=== PATIENT | female | born 1985 | race African-American/Black ===

== ENCOUNTER 2018-02-27 12:57 | Emergency (ER) | payer SELFPAY ==
[~2018-02-27] VITALS: Ht 167.6 cm; Wt 80.0 kg
[2018-02-27 13:00] VITALS: BP 143/70; PULSE 88; RESP 18; TEMP 97.8; O2SAT 100
--- NOTE | 2018-02-27 13:25 | PD ---
HPI Chief Complaint: Related Problem Time Seen by Provider: 13:20 Travel History International Travel<30 days: No Contact w/Intl Traveler<30days: No Traveled to known affect area: No History of Present Illness HPI 32-year-old female presents emergency department with sudden onset cramping and vaginal bleeding which started approximately noontime today. Patient states her last menstrual period was "sometime in December". 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 She states recent was 6 months ago, and is currently on control pills. Cramping is 5 out of 10. She is gone through 1 pad since noontime. She denies fever, chills, nausea, vomiting, or other symptoms. She has no known drug allergies. PFSH Past Medical History ?: Social History Alcohol Use: No Tobacco Use: No Substance Use: No Allergies-Medications (Allergen,Severity, Reaction): Coded Allergies: No Known Allergies (Unverified , 02/27/18) Reported Meds & Prescriptions Reported Meds & Active Scripts Active ( Vit-Ferrous Fumarate) 27 Mg Iron-1 Mg Tab 1 Tab PO DAILY Review of Systems Except as stated in HPI: all other systems reviewed are Neg General / Constitutional: No: Fever Eyes: No: Visual changes HENT: No: Headaches Cardiovascular: No: Chest Pain or Discomfort Respiratory: No: Shortness of Breath Gastrointestinal: Positive: Abdominal Pain Genitourinary: Positive: Pelvic Pain, Vaginal Bleeding (Cramping), No: Dysuria Musculoskeletal: No: Pain Skin: No Rash Neurologic: No: Weakness Psychiatric: No: Depression Endocrine: No: Polydipsia Hematologic/Lymphatic: No: Easy Bruising Physical Exam Narrative GENERAL: Patient appears stable and in no acute distress. SKIN: Warm and dry. Normal color. Normal turgor. No rash HEAD: Atraumatic. Normocephalic. EYES: Pupils equal and round. No scleral icterus. No injection or drainage. ENT: No nasal bleeding or discharge. Mucous membranes pink and moist. Pharynx is clear. Airways patent NECK: Trachea midline. Supple and nontender. CARDIOVASCULAR: Regular rate and rhythm. RESPIRATORY: No accessory muscle use. Clear to auscultation. Breath sounds equal bilaterally. GASTROINTESTINAL: Abdomen soft, non-tender, nondistended. Hepatic and splenic margins not palpable. No CVA tenderness. No significant abdominal pain. MUSCULOSKELETAL: Extremities without clubbing, cyanosis, or edema. No obvious deformities. NEUROLOGICAL: Awake and alert. No obvious cranial nerve deficits. Motor grossly within normal limits. Five out of 5 muscle strength in the arms and legs. Normal speech. PSYCHIATRIC: Appropriate mood and affect; insight and judgment normal. Data Data Last Documented VS Vital Signs Date Time Temp Pulse Resp B/P (MAP) Pulse Ox O2 Delivery O2 Flow Rate FiO2 02/27/18 13:00 97.8 88 18 143/70 (94) 100 Orders Orders Beta Hcg (Quant/Titer) (02/27/18 13:44) Complete Blood Count With Diff (02/27/18 13:44) Comprehensive Metabolic Panel (02/27/18 13:44) Complete Rh (02/27/18 13:44) Us Pelvis (Ques Preg/Ectopic) (02/27/18 ) Urinalysis - C+S If Indicated (02/27/18 13:44) Iv Access Insert/Monitor (02/27/18 13:44) Sodium Chloride 0.9% Flush (Ns Flush) (02/27/18 13:45) Ed Discharge Order (02/27/18 15:58) Labs Laboratory Tests Test 02/27/18 13:45 02/27/18 13:50 Urine Color YELLOW Urine Turbidity CLEAR Urine pH 6.5 Urine Specific [place] 1.024 Urine Protein TRACE mg/dL Urine Glucose (UA) NEG mg/dL Urine Ketones NEG mg/dL Urine Occult Blood LARGE Urine Nitrite NEG Urine Bilirubin NEG Urine Urobilinogen 2.0 MG/DL Urine Leukocyte Esterase NEG Urine RBC /hpf Urine WBC 2 /hpf Urine Squamous Epithelial Cells 1 /hpf Urine Mucus FEW /lpf Microscopic Urinalysis Comment CULT NOT INDICATED White Blood Count 5.9 TH/MM3 Red Blood Count 4.76 MIL/MM3 Hemoglobin 12.7 GM/DL Hematocrit 37.9 % Mean Corpuscular Volume 79.6 FL Mean Corpuscular Hemoglobin 26.7 PG Mean Corpuscular Hemoglobin Concent 33.5 % Red Cell Distribution Width 13.9 % Platelet Count 274 TH/MM3 Mean Platelet Volume 7.9 FL Neutrophils (%) (Auto) 63.3 % Lymphocytes (%) (Auto) 29.8 % Monocytes (%) (Auto) 5.4 % Eosinophils (%) (Auto) 1.0 % Basophils (%) (Auto) 0.5 % Neutrophils # (Auto) 3.7 TH/MM3 Lymphocytes # (Auto) 1.8 TH/MM3 Monocytes # (Auto) 0.3 TH/MM3 Eosinophils # (Auto) 0.1 TH/MM3 Basophils # (Auto) 0.0 TH/MM3 CBC Comment DIFF FINAL Differential Comment Blood Urea Nitrogen 8 MG/DL Creatinine 0.87 MG/DL Random Glucose 77 MG/DL Total Protein 7.4 GM/DL Albumin 3.6 GM/DL Calcium Level 8.8 MG/DL Alkaline Phosphatase 52 U/L Aspartate Amino Transf (AST/SGOT) 19 U/L Alanine Aminotransferase (ALT/SGPT) 25 U/L Total Bilirubin 0.5 MG/DL Sodium Level 137 MEQ/L Potassium Level 3.8 MEQ/L Chloride Level 105 MEQ/L Carbon Dioxide Level 24.7 MEQ/L Anion Gap 7 MEQ/L Estimat Glomerular Filtration Rate 93 ML/MIN Human Chorionic Gonadotropin, Quant 84529 MIU/ML [facility] Medical Decision Making Medical Screen Exam Complete: Yes Emergency Medical Condition: Yes Differential Diagnosis Early . Spotting and bleeding in . Threatened . Ectopic . Narrative Course Patient is medically stable time exam. Labs ordered including CBC, CMP, urine , urine , serum hCG. Urinalysis is unremarkable except for large blood CBC is normal. [place] [address] Patient is O+. Ultrasound shows: CONCLUSION: 1. Viable IUP a proximally 6 weeks and one day gestational age. 2. Small subchorionic hemorrhage adjacent to the gestational sac. 3. Simple right ovarian cyst measuring 3.5 cm. 4. Complex left ovarian cyst measuring 3 cm. 5. Fluid in the cul-de-sac. Patient will be started on vitamins. Patient is to follow with the [facility] or her coordinator integrated marketing in the next week. Diagnosis Primary Impression: Qualified Codes: Z3A.01 - Less than 8 weeks gestation of Referrals: [facility] Patient Instructions: General Instructions, Vitamin Combination, Formula (By mouth) Departure Forms: Work Release Enter return to work date: February 28, 2018 Special Instructions: Patient should be on light duty lifting no more than 10 pounds until cleared by her coordinator integrated marketing. Additional Instructions: Urinalysis is unremarkable except for large blood CBC is normal. [place] [address] Patient is O+. Ultrasound shows: CONCLUSION: 1. Viable IUP a proximally 6 weeks and one day gestational age. 2. Small subchorionic hemorrhage adjacent to the gestational sac. 3. Simple right ovarian cyst measuring 3.5 cm. 4. Complex left ovarian cyst measuring 3 cm. 5. Fluid in the cul-de-sac. Patient will be started on vitamins. Patient is to follow with the women's center or her coordinator integrated marketing in the next week. Med/Other Pt SpecificInfo: Prescription(s) given Scripts Vit-Ferrous Fumarate () 27 Mg Iron-1 Mg Tab 1 TAB PO DAILY for Nutritional Supplement, #30 TAB 0 Refills Prov: oMdesto Marlow MD 02/27/18 Disposition: 01 DISCHARGE HOME Condition: Stable Garret Kendall February 27, 2018 13:25
[2018-02-27] MEDS ORDERED: SODIUM CHLORIDE 0.9% FLUSH 10 ML FLUSH IVF PRN (13:45)
[2018-02-27 14:08] LABS: AUTOMATED NEUTROPHIL # 3.7 TH/MM3 (1.8-7.7); BASOPHIL % 0.5 % (0.0-2.0); EOSINOPHIL # 0.1 TH/MM3 (0-0.4); HEMATOCRIT 37.9 % (35.0-46.0); HEMOGLOBIN 12.7 GM/DL (11.6-15.3); LYMPH % 29.8 % (9.0-44.0); LYMPHOCYTE # 1.8 TH/MM3 (1.0-4.8); MEAN CELL VOLUME 79.6 FL (80.0-100.0); MEAN CORPUSCULAR HEMOGLOBIN 26.7 PG (27.0-34.0); MEAN CORPUSCULAR HGB CONC 33.5 % (32.0-36.0); MEAN PLATELET VOLUME 7.9 FL (7.0-11.0); MONO % 5.4 % (0.0-8.0); MONOCYTE # 0.3 TH/MM3 (0-0.9); NEUT % 63.3 % (16.0-70.0); PLATELET COUNT 274 TH/MM3 (150-450); RED BLOOD COUNT 4.76 MIL/MM3 (4.00-5.30); RED CELL DISTRIBUTION WIDTH 13.9 % (11.6-17.2); WHITE BLOOD COUNT 5.9 TH/MM3 (4.0-11.0)
[2018-02-27 14:18] LABS: BILIRUBIN, URINE NEG (NEG); BLOOD, URINE LARGE (NEG); GLUCOSE,URINE NEG (NEG); KETONE, URINE NEG (NEG); MUCUS URINE FEW /lpf (OCC); NITRITE,URINE NEG (NEG); PH, URINE 6.5 (5.0-8.5); SQUAMOUS EPITHELIAL CELL URINE 1 /hpf (0-5); URINE COLOR YELLOW (YELLW/STRAW); URINE LEUKOCYTE ESTERASE NEG (NEG)
[2018-02-27 14:22] LABS: ALBUMIN 3.6 GM/DL (3.4-5.0); AST (GOT) 19 U/L (15-37); BICARBONATE 24.7 MEQ/L (21.0-32.0); BLOOD UREA NITROGEN 8 MG/DL (7-18); CALCIUM 8.8 MG/DL (8.5-10.1); CHLORIDE 105 MEQ/L (98-107); CREATININE 0.87 MG/DL (0.50-1.00); GLOMERULAR FILTRATION RATE 93 ML/MIN (>89); GLUCOSE,RANDOM 77 MG/DL (74-106); SODIUM (NA) 137 MEQ/L (136-145)
[2018-02-27 14:23] LABS: ALT (GPT) 25 U/L (10-53)
[2018-02-27 14:39] LABS: ALKALINE PHOSPHATASE 52 U/L (45-117); TOTAL BILIRUBIN ADULT 0.5 MG/DL (0.2-1.0); TOTAL PROTEIN 7.4 GM/DL (6.4-8.2)
--- NOTE | 2018-02-27 15:50 | RADRPT ---
EXAM DATE/TIME: 02/27/2018 15:02 [place] COMPARISON: No previous studies available for comparison. INDICATIONS : Bleeding with . LAB(S): Beta-hC,229 MEDICAL HISTORY : . Abdominal pain. Vaginal bleeding. SURGICAL HISTORY : Hernia repair. ENCOUNTER: Initial ACUITY: 1 day PAIN SCORE: 0/10 LOCATION: Bilateral lower quadrant MEASUREMENTS: UTERUS: 11.6 x 6.5 x 7.8 cm ENDOMETRIAL STRIPE: >20 mm RIGHT OVARY: 4.5 x 3.3 x 3.8 cm LEFT OVARY: 3.7 x 2.7 x 2.4 cm FREE FLUID: Yes Right adnexa and cul-de-sac. CROWN RUMP LENGTH: 3.83mm = 6 WKS 1 DAYS FHR: 119 BPM FINDINGS: UTERUS: There is a gestational sac within the endometrial cavity. A pole measures 6 weeks and one day o f gestational age. The heart rate is 119 beats per minute. Hypoechoic area adjacent to the gest ational sac measuring 2.8 x 1.9 cm. RIGHT OVARY: Right ovarian cyst measuring 3.5 cm. LEFT OVARY: Complex left ovarian cyst measuring 3 cm. MISCELLANEOUS: There is some free fluid in the cul-de-sac. CONCLUSION: 1. Viable IUP a proximally 6 weeks and one day gestational age. 2. Small subchorionic hemorrhage adjacent to the gestational sac. 3. Simple right ovarian cyst measuring 3.5 cm. 4. Complex left ovarian cyst measuring 3 cm. 5. Fluid in the cul-de-sac. Mika Crockett MD on February 27, 2018 at 15:45 Board Certified Radiologist. This report was verified electronically.
[2018-02-27] MEDS ORDERED: TRICTAB PO (15:58)
== END 2018-02-27 16:30 | disposition home or self-care (01) ==
LOC: NEPD 12:57
DX: O20.9 Hemorrhage in early pregnancy, unspecified (principal); O34.81 Maternal care for other abnormalities of pelvic organs, first trimester; N83.201 Unspecified ovarian cyst, right side; N83.202 Unspecified ovarian cyst, left side; Z3A.01 Less than 8 weeks gestation of pregnancy
CPT/HCPCS: 76700; 80053; 81001; 84702; 85025; 86901; 99284

== ENCOUNTER 2018-03-21 20:00 | Emergency (ER) | payer SELFPAY ==
[~2018-03-21] VITALS: Ht 167.6 cm; Wt 80.0 kg
[~2018-03-21 20:00] MED LIST: TRICTAB PO
[2018-03-21 20:06] VITALS: BP 118/79; PULSE 92; RESP 16; TEMP 99; O2SAT 99
== END 2018-03-21 21:45 | disposition left against medical advice (07) ==
LOC: NED 20:00
DX: R07.9 Chest pain, unspecified (principal); Z53.21 Procedure and treatment not carried out due to patient leaving prior to being seen by health care provider
CPT/HCPCS: 99281

== ENCOUNTER 2018-04-02 10:38 | Emergency (ER) | payer SELFPAY ==
[2018-04-02 10:40] VITALS: BP 133/58; PULSE 98; RESP 16; TEMP 98.2; O2SAT 100
--- NOTE | 2018-04-02 10:43 | PD ---
HPI Chief Complaint: GI Complaint Time Seen by Provider: 10:43 Travel History International Travel<30 days: No Contact w/Intl Traveler<30days: No Traveled to known affect area: No History of Present Illness HPI 32-year-old female came to the emergency room with history of right flank pain radiating down to her right groin area. This been going on since this morning. Patient seems uncomfortable. No history of hematuria or dysuria. She has been nauseous but patient is also 11 weeks and has been nauseous and vomiting for couple weeks now. Patient says that she was having spotting earlier which has stopped. She was seen in the emergency room on 27 February for cramping and spotting and had a confirmed intrauterine by ultrasound at that point. She was supposed to see her OB today but because of some insurance issue she canceled the appointment and postponed it to next week. Vital signs are stable. No aggravating or relieving symptoms identified for the pain. Patient has not taken anything for the pain. PFSH Past Medical History Narrative Medical List of her past medical, surgical, social and family history reviewed from the nursing note. ?: : 7 Para: 4 Miscarriage: 1 : 1 Past Surgical History Abdominal Surgery: Yes (HERNIA SX) Social History Alcohol Use: No Tobacco Use: No Substance Use: No Allergies-Medications (Allergen,Severity, Reaction): Coded Allergies: No Known Allergies (Unverified , 03/21/18) Comments List of her allergies reviewed from the nursing note. Reported Meds & Prescriptions Reported Meds & Active Scripts Active Macrobid (Nitrofurantoin Monoh/Nitrofur Macro) 100 Mg Cap 100 Mg PO BID 10 Days Zofran Odt (Ondansetron Odt) 4 Mg Tab 4 Mg SL Q6HR PRN ( Vit-Ferrous Fumarate) 27 Mg Iron-1 Mg Tab 1 Tab PO DAILY Narrative Medication List of her home medications reviewed from the nursing note. Review of Systems Except as stated in HPI: all other systems reviewed are Neg Gastrointestinal: Positive: Abdominal Pain Physical Exam Narrative GENERAL: Awake, alert, moderate distress SKIN: Focused skin assessment warm/dry. HEAD: Atraumatic. Normocephalic. EYES: Pupils equal and round. No scleral icterus. No injection or drainage. ENT: No nasal bleeding or discharge. Mucous membranes pink and moist. NECK: Trachea midline. No JVD. CARDIOVASCULAR: Regular rate and rhythm. No murmur appreciated. RESPIRATORY: No accessory muscle use. Clear to auscultation. Breath sounds equal bilaterally. GASTROINTESTINAL: Abdomen soft, non-tender, nondistended. Hepatic and splenic margins not palpable. MUSCULOSKELETAL: No obvious deformities. No clubbing. No cyanosis. No edema. NEUROLOGICAL: Awake and alert. No obvious cranial nerve deficits. Motor grossly within normal limits. Normal speech. PSYCHIATRIC: Appropriate mood and affect; insight and judgment normal. Data Data Last Documented VS Orders Orders Urinalysis - C+S If Indicated (04/02/18 10:57) Ob Poc Ultrasound (04/02/18 ) Ondansetron Odt (Zofran Odt) (04/02/18 11:15) Acetaminophen (Tylenol) (04/02/18 12:15) Urine Culture (04/02/18 11:30) Nitrofurantoin Monohyd Macrocr (Macrobid (04/02/18 12:30) Complete Blood Count With Diff (04/02/18 12:18) Basic Metabolic Panel (Bmp) (04/02/18 12:18) Sodium Chlor 0.9% 1000 Ml Inj (Ns 1000 M (04/02/18 12:30) Ed Discharge Order (04/02/18 13:23) Labs Laboratory Tests Test 04/02/18 11:30 04/02/18 12:50 Urine Color DARK-YELLOW Urine Turbidity HAZY Urine pH 6.0 Urine Specific [place] 1.042 Urine Protein 100 mg/dL Urine Glucose (UA) NEG mg/dL Urine Ketones TRACE mg/dL Urine Occult Blood SMALL Urine Nitrite NEG Urine Bilirubin NEG Urine Urobilinogen 2.0 MG/DL Urine Leukocyte Esterase SMALL Urine RBC 4 /hpf Urine WBC 4 /hpf Urine Squamous Epithelial Cells 21 /hpf Urine Calcium Oxalate Crystals OCC /hpf Urine Bacteria MOD /hpf Urine Mucus MANY /lpf Microscopic Urinalysis Comment CULTURE INDICATED White Blood Count 8.0 TH/MM3 Red Blood Count 4.74 MIL/MM3 Hemoglobin 12.7 GM/DL Hematocrit 37.6 % Mean Corpuscular Volume 79.3 FL Mean Corpuscular Hemoglobin 26.7 PG Mean Corpuscular Hemoglobin Concent 33.7 % Red Cell Distribution Width 14.0 % Platelet Count 251 TH/MM3 Mean Platelet Volume 8.1 FL Neutrophils (%) (Auto) 83.2 % Lymphocytes (%) (Auto) 12.3 % Monocytes (%) (Auto) 4.0 % Eosinophils (%) (Auto) 0.4 % Basophils (%) (Auto) 0.1 % Neutrophils # (Auto) 6.7 TH/MM3 Lymphocytes # (Auto) 1.0 TH/MM3 Monocytes # (Auto) 0.3 TH/MM3 Eosinophils # (Auto) 0.0 TH/MM3 Basophils # (Auto) 0.0 TH/MM3 CBC Comment DIFF FINAL Differential Comment Blood Urea Nitrogen 9 MG/DL Creatinine 0.73 MG/DL Random Glucose 89 MG/DL Calcium Level 9.0 MG/DL Sodium Level 137 MEQ/L Potassium Level 4.1 MEQ/L Chloride Level 103 MEQ/L Carbon Dioxide Level 24.6 MEQ/L Anion Gap 9 MEQ/L Estimat Glomerular Filtration Rate 113 ML/MIN MDM Medical Decision Making Medical Screen Exam Complete: Yes Emergency Medical Condition: Yes Medical Record Reviewed: Yes Differential Diagnosis UTI, ureteral colic, round ligament Narrative Course 12:54 PM UA suggestive of dehydration and possible UTI. Given her dose of Macrobid. I have ordered blood test and IV fluids. Awaiting for the blood test result. 1:24 PM all the blood test results are back and within acceptable limit. I am comfortable discharging her home. She will go home on prescriptions and has to follow-up with her OB. Procedures Procedure Narrative Emergency Department Pelvic ultrasound was performed with patient consent. The curvilinear probe was used in the transverse and sagittal views within the suprapubic region revealing single, live intrauterine . heart rate was 138 bpm. See this measures 11 weeks and 1 day by crown-rump length. EKG Prior to Arrival: No Diagnosis Primary Impression: First trimester Additional Impressions: UTI (urinary tract infection) Qualified Codes: N39.0 - Urinary tract infection, site not specified Right flank pain Referrals: Primary Care Physician Additional Instructions: Please follow-up with your OB. Take the medication as per the prescription direction. You can take Tylenol for your pain. Drink lots of fluid to keep yourself hydrated. Return to ER if condition worsens any other new concerns Med/Other Pt SpecificInfo: Prescription(s) given Scripts Nitrofurantoin Monohydrate Macrocrystals (Macrobid) 100 Mg Cap 100 MG PO BID for Infection for 10 Days, #20 CAP 0 Refills Prov: Saroj Morales MD 04/02/18 Ondansetron Odt (Zofran Odt) 4 Mg Tab 4 MG SL Q6HR Y for Nausea/Vomiting, #30 TAB 0 Refills Prov: Saroj Morales MD 04/02/18 Disposition: 01 DISCHARGE HOME Condition: Stable Saroj Morales MD Apr 02, 2018 10:43
[2018-04-02] MEDS ORDERED: ONDANSETRON ODT 4 MG TAB PO ONE (11:15)
[2018-04-02 12:04] LABS: BACTERIA, URINE MOD /hpf; BILIRUBIN, URINE NEG (NEG); BLOOD, URINE SMALL (NEG); CALCIUM OXALATE CRYSTALS,URINE OCC /hpf; GLUCOSE,URINE NEG (NEG); KETONE, URINE TRACE mg/dL (NEG); MUCUS URINE MANY /lpf (OCC); NITRITE,URINE NEG (NEG); SQUAMOUS EPITHELIAL CELL URINE 21 /hpf (0-5); URINE COLOR DARK-YELLOW (YELLW/STRAW); URINE LEUKOCYTE ESTERASE SMALL (NEG)
[2018-04-02] MEDS ORDERED: ACETAMINOPHEN 325 MG TAB PO ONE (12:15)
[2018-04-02] MEDS ORDERED: NITROFURANTOIN MONOHYD MACROCR 100 MG CAP PO ONE (12:30)
[2018-04-02] MEDS ORDERED: SODIUM CHLOR 0.9% 1000 ML INJ 1,000 ML IV ONE (12:30)
[2018-04-02 13:07] LABS: AUTOMATED NEUTROPHIL # 6.7 TH/MM3 (1.8-7.7); BASOPHIL % 0.1 % (0.0-2.0); EOSINOPHIL % 0.4 % (0.0-4.0); HEMATOCRIT 37.6 % (35.0-46.0); HEMOGLOBIN 12.7 GM/DL (11.6-15.3); LYMPH % 12.3 % (9.0-44.0); MEAN CELL VOLUME 79.3 FL (80.0-100.0); MEAN CORPUSCULAR HEMOGLOBIN 26.7 PG (27.0-34.0); MEAN CORPUSCULAR HGB CONC 33.7 % (32.0-36.0); MEAN PLATELET VOLUME 8.1 FL (7.0-11.0); MONOCYTE # 0.3 TH/MM3 (0-0.9); NEUT % 83.2 % (16.0-70.0); PLATELET COUNT 251 TH/MM3 (150-450); RED BLOOD COUNT 4.74 MIL/MM3 (4.00-5.30)
[2018-04-02 13:18] LABS: BICARBONATE 24.6 MEQ/L (21.0-32.0); CREATININE 0.73 MG/DL (0.50-1.00)
[2018-04-02] MEDS ORDERED: ZOFR4TAB3 SL (13:26)
[2018-04-02] MEDS ORDERED: MACR100C2 PO (13:26)
[2018-04-02 13:36] VITALS: BP 130/56
== END 2018-04-02 13:37 | disposition home or self-care (01) ==
LOC: NEPD 10:38
DX: O23.41 Unspecified infection of urinary tract in pregnancy, first trimester (principal); O21.9 Vomiting of pregnancy, unspecified; Z3A.11 11 weeks gestation of pregnancy
CPT/HCPCS: 80048; 81001; 85025; 87086; 99284; J7030

== ENCOUNTER 2018-10-14 08:43 | Inpatient (IN) ==
--- NOTE | 2018-10-14 09:17 | ED ---
History of Present Illness Primary Care Physician: No Primary Care Physician Dr. Decker Chief Complaint: Contractions History of Present Illness: Patient is 33-year-old black female at [address] Decker for care and presents complaining of contractions. She denies bleeding or leakage of fluid. Patient is qasim every 2-3 minutes and at the time of this dictation the monitor strip is not reactive but we are hydrating the patient and will monitor that closely Weeks Gestation:: 39 Para: 4 : 11 Review of Systems All other systems reviewed negative except as stated in HPI PMFSH - History History Provided By: Patient - Medical History Medical History: Medical History (Last Reviewed 08/20/18 @ 09:35 by Roman Decker MD) Patient denies medical problems - Surgical History Surgical History: Surgical History (Last Updated 08/19/18 @ 19:54 by Mauricio Harper RN) No history of previous surgery - Tobacco History Smoking Status: Never smoker - Alcohol History How Often Do You Have a Drink Containing Alcohol: Never - Substance Use History Substance History: No History of Abuse - Travel History History of Recent Travel: No Recent Travel in the [place] Within the Last 8 Weeks: No Recent Travel Out of the Country Within the Last 8 Weeks: No Medications and Allergies Allergies Allergy/AdvReac Type Severity Reaction Status Date / Time No Known Allergies Allergy Verified 10/14/18 08:53 Home Medications Medication Instructions Recorded Confirmed Type PNV cmb#95-ferrous fumarate-FA 1 tab PO DAILY 08/20/18 10/14/18 History [] Exam Vital signs: Vital Signs 10/14/18 09:00 Temperature 97.7 F Pulse Rate 93 H Respiratory Rate 18 Blood Pressure 126/74 Intake & Output 10/13/18 10/14/18 10/14/18 18:59 06:59 18:59 Weight 91.172 kg Narrative: GENERAL: Well-nourished, well-developed patient. SKIN: Warm and dry. HEAD: Normocephalic and atraumatic. EYES: No scleral icterus. No injection or drainage. ENT: No nasal drainage noted. Mucous membranes pink. Airway patent. NECK: Supple, trachea midline. No JVD. CARDIOVASCULAR: Regular rate and rhythm without murmurs, gallops, or rubs. RESPIRATORY: Breath sounds equal bilaterally. No accessory muscle use. BREASTS: Bilateral exam showed no masses , no retractions, no nipple discharge. ABDOMEN/GI: Abdomen soft, non-tender, bowel sounds present, no rebound, no guarding Gravid to [39-] weeks size Fundal Height: [-39] GENITOURINARY: External Genitalia: intact and normal in appearance BUS glands: [-] Cervix: [-post] Dilatation: [2-3-] Effacement: [thick-] Station: [high-] Presentation: [-vtx] Membranes: [intact Uterine Contractions: [q 2-3 min-] FHT's: Category: [2-] Baseline: [-125] Reactive: [NR initially-] Variability: [minimal-] Decels: [1 FHR decel noted-] EXTREMITIES: No cyanosis or edema. BACK: Nontender without obvious deformity. No CVA tenderness. NEUROLOGICAL: Awake and alert. Motor and sensory grossly within normal limits. Five out of 5 muscle strength in all muscle groups. Normal speech. Results - Labs Group B Strep: Negative Assessment and Plan - Diagnosis (1) 39 weeks gestation of Code(s): Z3A.32 - 32 weeks gestation of Status: Acute (2) Uterine contractions during Code(s): O62.2 - Other uterine inertia Status: Acute - Plan This multiparous patient at 39 weeks is having contractions slowed not quite in labor yet cervix 2-3/thick/high/cephalic and the being 7 this could be her baseline cervical exam 4 weeks she is qasim every 2-3 minutes. heart rate tracing is currently nonreactive with a mild tachycardia and minimal to moderate variability. Plan to hydrate patient with IV fluid D5 LR and reevaluate that status. If the strip continues to be suspicious then we consider admission and delivery Discharge Plan - Physicians Team ED Provider: Yohannes Myles Primary Care Provider: Primary Care UriiLorene - Rxs /Orders / Referrals /Forms Prescriptions: No Action PNV cmb#95-ferrous fumarate-FA [] 28 mg iron- 800 mcg Tablet 1 tab PO DAILY - Discharge Instructions Print Language: Telugu
[2018-10-14] MEDS: Dextrose 5%/Lactated Ringer's 1,000 ML IV.CONT SCH ×2 (09:45→23:25)
[2018-10-14] MEDS ORDERED: fentaNYL Citrate Inj 100 MCG/2 ML Ampul IV.PUSH PRN ×2 (10:13)
[2018-10-14] MEDS ORDERED: Sodium Chlor 0.9% Inj 500 ML IV.SIG PRN (10:13)
[2018-10-14] MEDS ORDERED: Naloxone Inj 0.4 MG/ML Vial IV.PUSH PRN ×2 (10:13→12:00)
[2018-10-14] MEDS ORDERED: Oxytocin 30 Units/500ml Premix 30 UNITS/500 ML BAG IV.SIG ONE ×3 (10:13→13:35)
[2018-10-14] MEDS ORDERED: Sod Chloride 0.9% Inj 1,000 ML IV.CONT PRN (10:13)
[2018-10-14] MEDS ORDERED: Oxytocin 30 Units/500ml Premix 30 UNITS/500 ML BAG IV.CONT PRN (10:14)
[2018-10-14] MEDS ORDERED: Citric Acid/Sodium Citrate Liq 30 ML UDC PO SCH ×2 (10:15→12:00)
--- NOTE | 2018-10-14 10:19 | P.HPOB ---
Patient Name: Tashia Sainz Date of : 89 Patient Status: Emergency Emergency Provider: Maryellen Date: 10/14/18 09:13 Initialization Date: 10/14/18 09:13 History of Present Illness Primary Care Physician: No Primary Care Physician Dr. Decker Chief Complaint: Contractions History of Present Illness: Patient is 33-year at [address] Dceker for care and presents complaining of contractions. She denies bleeding or leakage of fluid. Follow-up on triage-seen by Dr. Myles earlier. Patient has received approximately 1 L p.o. fluids. 1 L of IV fluids D5. Nonreactive NST noted no decelerations no decelerations minimal beat to beat variability present Weeks Gestation:: 39 Para: 4 : 11 Review of Systems All other systems reviewed negative except as stated in HPI PMFSH - History History Provided By: Patient - Medical History Medical History: Medical History (Last Reviewed 08/20/18 @ 09:35 by Roman Decker MD) Patient denies medical problems - Surgical History Surgical History: Surgical History (Last Updated 08/19/18 @ 19:54 by Mauricio Harper RN) No history of previous surgery - Tobacco History Smoking Status: Never smoker - Alcohol History How Often Do You Have a Drink Containing Alcohol: Never - Substance Use History Substance History: No History of Abuse - Travel History History of Recent Travel: No Recent Travel in the [place] Within the Last 8 Weeks: No Recent Travel Out of the Country Within the Last 8 Weeks: No Medications and Allergies Allergies Allergy/AdvReac Type Severity Reaction Status Date / Time No Known Allergies Allergy Verified 10/14/18 08:53 Home Medications Medication Instructions Recorded Confirmed Type PNV cmb#95-ferrous fumarate-FA 1 tab PO DAILY 08/20/18 10/14/18 History [] Exam Vital signs: Vital Signs 10/14/18 09:00 Temperature 97.7 F Pulse Rate 93 H Respiratory Rate 18 Blood Pressure 126/74 Intake & Output 10/13/18 10/14/18 10/14/18 18:59 06:59 18:59 Weight 91.172 kg Narrative: GENERAL: Well-nourished, well-developed patient. SKIN: Warm and dry. HEAD: Normocephalic and atraumatic. EYES: No scleral icterus. No injection or drainage. ENT: No nasal drainage noted. Mucous membranes pink. Airway patent. NECK: Supple, trachea midline. No JVD. CARDIOVASCULAR: Regular rate and rhythm without murmurs, gallops, or rubs. RESPIRATORY: Breath sounds equal bilaterally. No accessory muscle use. BREASTS: Bilateral exam showed no masses , no retractions, no nipple discharge. ABDOMEN/GI: Abdomen soft, non-tender, bowel sounds present, no rebound, no guarding Gravid to 39 weeks size Fundal Height: 39 GENITOURINARY: External Genitalia: intact and normal in appearance BUS glands: Unremarkable Cervix: Moderate posterior Dilatation: 2 Effacement: 40% Station: -3 Presentation: Vertex Membranes: [intact Uterine Contractions: Present FHT's: Category: 2 Baseline: 125 Reactive: Nonreactive Variability: Minimal Decels: 1 earlier small EXTREMITIES: No cyanosis or edema. BACK: Nontender without obvious deformity. No CVA tenderness. NEUROLOGICAL: Awake and alert. Motor and sensory grossly within normal limits. Five out of 5 muscle strength in all muscle groups. Normal speech. Results - Labs Group B Strep: Negative Assessment and Plan - Diagnosis (1) 39 weeks gestation of Code(s): Z3A.32 - 32 weeks gestation of Status: Acute (2) Uterine contractions during Code(s): O62.2 - Other uterine inertia Status: Acute - Plan-at present nonreactive NST. 1 Decel otherwise beat to beat variability present. Plan admit discussed with Dr. Decker-AROM FSE will be placed continue close maternal- monitor
[2018-10-14 10:34] LABS: Baso % (Auto) 0.2 % (0.0-2.0); Eos % (Auto) 0.5 % (0.0-4.0); Hematocrit 33.8 % (35.0-46.0); Hemoglobin 10.9 gm/dL (11.6-15.3); Lymph # (Auto) 1.4 th/mm3 (1.0-4.8); Lymph % (Auto) 15.4 % (9.0-44.0); Mean Corpuscular HGB Conc 32.3 % (32.0-36.0); Mean Corpuscular Hemoglobin 24.7 pg (27.0-34.0); Mean Corpuscular Volume 76.5 fL (80.0-100.0); Mean Platelet Volume 8.4 fL (7.0-11.0); Mono # (Auto) 0.5 th/mm3 (0.0-0.9); Neut # (Auto) 7.2 th/mm3 (1.8-7.7); Neut % (Auto) 78.9 % (16.0-70.0); Platelet Count 208 th/mm3 (150-450); Red Blood Count 4.42 mil/mm3 (4.00-5.30); Red Cell Distribution Width 16.3 % (11.6-17.2); White Blood Count 9.1 th/mm3 (4.0-11.0)
[2018-10-14 10:49] LABS: Bilirubin,Urine Negative (Negative); Clarity,Urine Clear (Clear); Color,Urine Yellow (Yellw/Straw); Glucose,Urine (UA) 500 or Greater mg/dL (Negative); Leukocyte Esterase,Urine Negative (Negative); Mucus,Urine Few /lpf (Occasional); Nitrite,Urine Negative (Negative); Specific Gravity,Urine 1.006 (1.002-1.035); Squamous Epithelial Cell,Urine 2 /hpf (0-5)
[2018-10-14] MEDS ORDERED: Morphine Sulfate PF Inj 5 MG/10 ML Ampul ONE (11:47)
[2018-10-14 12:54] LABS: Cord Arterial Blood HCO3 25.3
[2018-10-14] MEDS ORDERED: ceFAZolin 2 GM Premix Inj 2 GM/50 ML PIGGYBACK IV.SIG SCH (13:30)
[2018-10-14] MEDS ORDERED: Simethicone 80 MG Chew Tablet PO PRN (13:35)
--- NOTE | 2018-10-14 13:48 | P.OP ---
- Preoperative Diagnosis (1) Non-reassuring status (2) 39 weeks gestation of (3) Encounter for sterilization Date of procedure: 10/14/18 Procedure: primary LTCS via Pfannenstiel with bilateral tubal ligation Anesthesia: spinal Surgeon: Coleen Morataya MD Splitter Head: Roman Decker Estimated blood loss (mL): 600 IV fluids (mL): 1,800 Urine output (mL): 600 (clear) Pathology: other (placenta and segments of R and L fallopian tubes) Operation and Findings: Taken to the operating room identified by name band and verbally and given a regional anesthetic. She was prepped and draped in the usual sterile manner for a section. A time out was taken. A Pfannenstiel incision was made and carried down to the fascia the fascia was nicked bilaterally and the fascia was taken off the rectus muscle by blunt and sharp dissection. The rectus muscles were spread bluntly and the peritoneum was entered under direct vision. The incision was extended with care to avoid the urinary bladder. A bladder blade was placed and a bladder flap was created in the usual fashion. The lower uterine segment was then incised sharply in a transverse manner and taken down in the midline until the uterine cavity was entered. The incision was extended with the surgeon's fingers. The vertex was grasped and with fundal pressure the vertex was delivered without difficulty hypopharynx and nasopharynx were suctioned and the remainder of the delivered without difficulty. The cord clamping was not delayed as the fetus had poor tone initially. Cord blood was obtained. The was handed over to the resuscitation team. The placenta was removed manually and the uterus was curettaged twice with a wet lap. The uterus was delivered from the abdomen. The uterine incision was repaired with 0 Vicryl in a running fashion in 2 layers the second layer imbricating the first. The right fallopian tube was identified, the isthmic portion of the fallopian tube was grasped and elevated with a Bunkie clamp. A window was created in the mesosalpinx with the use of a Bovie. A 3 cm segment of fallopian tube was ligated with 0 plain ties. The distal and proximal end of the fallopian tubes were ligated at the base for additional security. A second ligation was performed with 0 plain ties. The tube was excised and sent to pathology for confirmation. The left fallopian tube was ligated in similar fashion. The uterus, ovaries, and fallopian tubes were placed back into the abdominal cavity. The cul-de-sac and gutters were cleaned of blood and debris the uterus was delivered back into the abdomen. Upon reinspection good hemostasis of the uterine incision and tubal sites was once again noted. The rectus muscles were reapproximated with 0 Vicryl in a running the fascia was repaired with 0 Vicryl from lateral to midline bilaterally. The subcutaneous layer was repaired with a 3-0 Vicryl. The skin was repaired with a 4-0 Monocryl in a subcuticular manner. Patient tolerated the procedure well and went to recovery room in good condition. Dr. Decker was present for the procedure.
[2018-10-14] MEDS ORDERED: Oxytocin 30 Units/500ml Premix 30 UNITS/500 ML BAG ONE (14:21)
[2018-10-14] MEDS ORDERED: Oxytocin 30 Units/500ml Premix 30 UNITS/500 ML BAG IV.SIG PRN ×2 (16:52→18:35)
[2018-10-14] MEDS ORDERED: Ketorolac Inj 30 MG/ML (IVP) Vial IV.PUSH PRN (17:17)
[2018-10-14] MEDS ORDERED: Zolpidem Tartrate 5 MG Tablet PO PRN (21:00)
[2018-10-15] MEDS: Dextrose 5%/Lactated Ringer's 1,000 ML IV.CONT SCH ×3 (04:34→17:52)
[2018-10-15 06:02] LABS: Baso % (Auto) 0.2 % (0.0-2.0); Hematocrit 30.1 % (35.0-46.0); Hemoglobin 9.8 gm/dL (11.6-15.3); Lymph # (Auto) 1.4 th/mm3 (1.0-4.8); Lymph % (Auto) 8.5 % (9.0-44.0); Mean Corpuscular HGB Conc 32.7 % (32.0-36.0); Mean Corpuscular Hemoglobin 24.6 pg (27.0-34.0); Mean Corpuscular Volume 75.2 fL (80.0-100.0); Mean Platelet Volume 8.5 fL (7.0-11.0); Mono # (Auto) 0.5 th/mm3 (0.0-0.9); Mono % (Auto) 3.4 % (0.0-8.0); Neut # (Auto) 14.2 th/mm3 (1.8-7.7); Neut % (Auto) 87.9 % (16.0-70.0); Platelet Count 218 th/mm3 (150-450); Red Cell Distribution Width 16.2 % (11.6-17.2); White Blood Count 16.1 th/mm3 (4.0-11.0)
--- NOTE | 2018-10-15 09:03 | P.PNOB ---
Subjective Post op day: 1 Objective Vital Signs/I&O: Vital Signs 10/14/18 09:00 10/14/18 09:10 10/14/18 10:05 Temperature 97.7 F Pulse Rate 93 H 102 H 84 Respiratory Rate 18 Blood Pressure 126/74 10/14/18 10:20 10/14/18 10:55 10/14/18 10:56 Temperature 98.8 F Pulse Rate 83 120 H Respiratory Rate 17 Blood Pressure 128/75 10/14/18 11:00 10/14/18 13:37 10/14/18 13:48 Temperature 97.7 F Pulse Rate 104 H 83 71 Respiratory Rate 16 17 Blood Pressure 102/59 L 110/72 10/14/18 14:02 10/14/18 14:16 10/14/18 14:17 Temperature Pulse Rate 76 67 Respiratory Rate 19 18 Blood Pressure 113/53 L 119/56 L 10/14/18 14:28 10/14/18 15:15 10/14/18 20:00 Temperature 97.8 F 97.5 F L 98.3 F Pulse Rate 65 69 Respiratory Rate 16 18 Blood Pressure 112/53 L 131/65 10/15/18 00:00 10/15/18 04:00 10/15/18 08:00 Temperature 98.3 F 98.5 F 98.6 F Pulse Rate 72 109 H 83 Respiratory Rate 18 18 16 Blood Pressure 127/65 121/73 113/61 Intake & Output 10/14/18 10/15/18 10/15/18 18:59 06:59 18:59 Intake Total 100 / 100 Output Total 300 / 300 Balance -200 / -200 Weight 91.172 kg Intake: IV 100 / 100 Ofirmev Inj 1,000 mg In 100 ml 100 / 100 @ 400 mls/hr IV.SIG Q8H [facility] Rx# :[id number] Output: Urine Amount (Catheter) 300 / 300 Straight 300 / 300 Result Diagrams: 10/15/18 04:49 Objective Remarks: GENERAL: Well-nourished, well-developed patient. CARDIOVASCULAR: Regular rate and rhythm without murmurs, gallops, or rubs. RESPIRATORY: Breath sounds equal bilaterally. No accessory muscle use. ABDOMEN/GI: Abdomen soft, non-tender, bowel sounds present. Incision: pressure dressing, Clean, dry and intact. Fundus: Firm, non-tender at umbilicus. GENITOURINARY: Light to moderate bleeding. EXTREMITIES: No cyanosis or edema, non-tender, without signs of DVT. Medications and IVs: Active Medications Citric Acid/Sodium Citrate (Sodium Citrate/Citric Acid Liq) 30 ml PO PHOTO STUDIO ASSISTANT [facility] Stop: 10/18/18 10:14 Last Admin: 10/14/18 11:42 Dose: 30 ml Diphenhydramine HCl (Benadryl) 50 mg PO Q6H PRN PRN Reason: MILD TO MODERATE ITCHING Stop: 10/15/18 11:59 Diphenhydramine HCl (Benadryl Inj) 25 mg IV.PUSH Q6H PRN PRN Reason: MILD TO MODERATE ITCHING Stop: 10/15/18 11:59 Diphtheria/Pertussis/Tetanus Vacc (Boostrix Vaccine Inj) 0.5 ml IM .ONCE ONE Stop: 10/15/18 16:01 Dextrose/Lactated Ringer's (D5w/Lr Inj) 1,000 mls @ 125 mls/hr IV.CONT .Q8H [facility] Last Admin: 10/15/18 04:34 Dose: Not Given Lactated Ringer's (Lr 1000 Ml Inj) 1,000 mls @ 3,000 mls/hr IV.SIG UNSCH PRN PRN Reason: compromise or epidural Lactated Ringer's (Lr 1000 Ml Inj) 1,000 mls @ 125 mls/hr IV.CONT .Q8H [facility] Last Admin: 10/15/18 04:34 Dose: Not Given Sodium Chloride (Ns Inj) 500 mls @ 1,000 mls/hr IV.SIG UNSCH PRN PRN Reason: SEE LABEL COMMENTS Sodium Chloride (Ns Inj) 1,000 mls @ 100 mls/hr IV.CONT .Q10H PRN PRN Reason: SEE LABEL COMMENTS Oxytocin (Pitocin 30 Units/Ns 500 Ml Premix) 30 units in 500 mls @ 1 mls/hr IV.CONT TITRATE PRN; Protocol PRN Reason: For induction of labor Cefazolin Sodium/Dextrose (Ancef 2 Gm Premix Inj) 2 gm in 50 mls @ 100 mls/hr IV.SIG PHOTO STUDIO ASSISTANT [facility] Stop: 10/18/18 13:29 Lactated Ringer's (Lr 1000 Ml Inj) 1,000 mls @ 150 mls/hr IV.CONT .Q6H40M [facility] Last Admin: 10/15/18 08:20 Dose: Not Given Lactated Ringer's (Lr 1000 Ml Inj) 1,000 mls @ 100 mls/hr IV.CONT .Q10H [facility] Stop: 10/15/18 12:51 Last Admin: 10/15/18 05:24 Dose: Not Given Oxytocin (Pitocin 30 Units/Ns 500 Ml Premix) 30 units in 500 mls @ 100 mls/hr IV.SIG UNSCH PRN PRN Reason: Heavy bleeding Lactated Ringer's (Lr 1000 Ml Inj) 1,000 mls @ 100 mls/hr IV.CONT .Q10H [facility] Stop: 10/15/18 14:34 Last Admin: 10/15/18 08:20 Dose: Not Given Oxytocin (Pitocin 30 Units/Ns 500 Ml Premix) 30 units in 500 mls @ 100 mls/hr IV.SIG UNSCH PRN PRN Reason: Heavy bleeding Ibuprofen (Motrin) 800 mg PO Q8H PRN PRN Reason: cramping Ketorolac Tromethamine (Toradol Inj) 30 mg IV.PUSH Q6H PRN PRN Reason: SEE LABEL COMMENTS Lidocaine HCl (Xylocaine 1% Inj) 0.1 ml I-DERMAL PRN PRN PRN Reason: For IV start Stop: 10/17/18 10:12 Lidocaine HCl (Xylocaine 1% Inj) 10 ml INFILTRATN PRN PRN PRN Reason: For episiotomy repair Stop: 10/16/18 10:12 Measles/Mumps/Rubella Vaccine Live (M-M-R Ii Vaccine Inj) 0.5 ml SQ .ONCE ONE Stop: 10/15/18 16:01 Mineral Oil (Muri-Lube Oil) 10 ml TOPICAL PRN PRN PRN Reason: PRN perineal massage Miscellaneous Information (Misc Nursing Information) 1 each OTHER UNSCH PRN PRN Reason: SEE LABEL COMMENTS Stop: 10/15/18 11:59 Miscellaneous Information (Misc Nursing Information) 1 each OTHER UNSCH PRN PRN Reason: SEE LABEL COMMENTS Stop: 10/15/18 11:59 Naloxone HCl (Narcan Inj) 0.1 mg IV.PUSH Q2M PRN PRN Reason: for opiate reversal Naloxone HCl (Narcan Inj) 0.4 mg IV.PUSH UNSCH PRN PRN Reason: SEE LABEL COMMENTS Stop: 10/15/18 11:59 Ondansetron HCl (Zofran Inj) 4 mg IV.PUSH Q6H PRN PRN Reason: NAUSEA/VOMITING Last Admin: 10/15/18 00:25 Dose: 4 mg Oxycodone/Acetaminophen (Percocet 5/325 Mg) 1 tab PO Q4H PRN PRN Reason: PAIN SCALE 3 TO 5 Oxycodone/Acetaminophen (Percocet 5/325 Mg) 2 tab PO Q4H PRN PRN Reason: PAIN SCALE 6 TO 10 Senna/Docusate Sodium (Tamika-Colace) 2 tab PO Q12H PRN PRN Reason: CONSTIPATION Simethicone (Mylicon Chew) 80 mg PO QID PRN PRN Reason: FLATULENCE Sodium Chloride (Ns Flush) 2 ml IV.FLUSH BID [facility] Last Admin: 10/15/18 08:20 Dose: Not Given Sodium Chloride (Ns Flush) 2 ml IV.FLUSH PRN PRN PRN Reason: FLUSH AFTER USING IV ACCESS Sodium Chloride (Ns Flush) 2 ml IV.FLUSH BID [facility] Last Admin: 10/15/18 08:20 Dose: Not Given Sodium Chloride (Ns Flush) 2 ml IV.FLUSH PRN PRN PRN Reason: FLUSH AFTER USING IV ACCESS Zolpidem Tartrate (Ambien) 5 mg PO HS PRN PRN Reason: INSOMNIA Assessment and Plan - Plan POD #1 pt doing well pain well managed with oral pain medication will ambulate and shower today pt stated she had problems voiding, we will monitor bonding with routine care Discharge Planning: dc home in 1-2 days
[2018-10-15] MEDS: Senna/Docusate Sodium 8.6/50 MG Tablet PO PRN (15:01)
[2018-10-15] MEDS ORDERED: Diphtheria/Tetanus/Pertussis Vaccine Inj 0.5 ML Syringe IM ONE (16:00)
[2018-10-15] MEDS ORDERED: Measles/Mumps/Rubella Vaccine Inj 0.5 ML Vial SQ ONE (16:00)
[2018-10-16] MEDS: Dextrose 5%/Lactated Ringer's 1,000 ML IV.CONT SCH ×3 (07:19→19:33)
--- NOTE | 2018-10-16 10:01 | P.PNOB ---
Subjective Post op day: 2 Objective Vital Signs/I&O: Vital Signs 10/15/18 12:00 10/15/18 20:00 10/16/18 08:00 Temperature 98.2 F 98.2 F 98.1 F Pulse Rate 99 H 89 88 Respiratory Rate Blood Pressure 113/48 L 122/69 100/62 Result Diagrams: 10/15/18 04:49 Objective Remarks: GENERAL: Well-nourished, well-developed patient. CARDIOVASCULAR: Regular rate and rhythm without murmurs, gallops, or rubs. RESPIRATORY: Breath sounds equal bilaterally. No accessory muscle use. ABDOMEN/GI: Abdomen soft, non-tender, bowel sounds present. Incision: steri-strips Clean, dry and intact. Fundus: Firm, non-tender at umbilicus. GENITOURINARY: Light to moderate bleeding. EXTREMITIES: No cyanosis or edema, non-tender, without signs of DVT. Medications and IVs: Active Medications Citric Acid/Sodium Citrate (Sodium Citrate/Citric Acid Liq) 30 ml PO DIRECTOR MOBILE [facility] Stop: 10/18/18 10:14 Last Admin: 10/14/18 11:42 Dose: 30 ml Dextrose/Lactated Ringer's (D5w/Lr Inj) 1,000 mls @ 125 mls/hr IV.CONT .Q8H [facility] Last Admin: 10/16/18 09:02 Dose: Not Given Lactated Ringer's (Lr 1000 Ml Inj) 1,000 mls @ 3,000 mls/hr IV.SIG UNSCH PRN PRN Reason: compromise or epidural Lactated Ringer's (Lr 1000 Ml Inj) 1,000 mls @ 125 mls/hr IV.CONT .Q8H [facility] Last Admin: 10/16/18 07:19 Dose: Not Given Sodium Chloride (Ns Inj) 500 mls @ 1,000 mls/hr IV.SIG UNSCH PRN PRN Reason: SEE LABEL COMMENTS Sodium Chloride (Ns Inj) 1,000 mls @ 100 mls/hr IV.CONT .Q10H PRN PRN Reason: SEE LABEL COMMENTS Oxytocin (Pitocin 30 Units/Ns 500 Ml Premix) 30 units in 500 mls @ 1 mls/hr IV.CONT TITRATE PRN; Protocol PRN Reason: For induction of labor Cefazolin Sodium/Dextrose (Ancef 2 Gm Premix Inj) 2 gm in 50 mls @ 100 mls/hr IV.SIG DIRECTOR MOBILE [facility] Stop: 10/18/18 13:29 Lactated Ringer's (Lr 1000 Ml Inj) 1,000 mls @ 150 mls/hr IV.CONT .Q6H40M [facility] Last Admin: 10/16/18 07:19 Dose: Not Given Oxytocin (Pitocin 30 Units/Ns 500 Ml Premix) 30 units in 500 mls @ 100 mls/hr IV.SIG UNSCH PRN PRN Reason: Heavy bleeding Oxytocin (Pitocin 30 Units/Ns 500 Ml Premix) 30 units in 500 mls @ 100 mls/hr IV.SIG UNSCH PRN PRN Reason: Heavy bleeding Ibuprofen (Motrin) 800 mg PO Q8H PRN PRN Reason: cramping Last Admin: 10/16/18 01:54 Dose: 800 mg Ketorolac Tromethamine (Toradol Inj) 30 mg IV.PUSH Q6H PRN PRN Reason: SEE LABEL COMMENTS Lidocaine HCl (Xylocaine 1% Inj) 0.1 ml I-DERMAL PRN PRN PRN Reason: For IV start Stop: 10/17/18 10:12 Lidocaine HCl (Xylocaine 1% Inj) 10 ml INFILTRATN PRN PRN PRN Reason: For episiotomy repair Stop: 10/16/18 10:12 Mineral Oil (Muri-Lube Oil) 10 ml TOPICAL PRN PRN PRN Reason: PRN perineal massage Naloxone HCl (Narcan Inj) 0.1 mg IV.PUSH Q2M PRN PRN Reason: for opiate reversal Ondansetron HCl (Zofran Inj) 4 mg IV.PUSH Q6H PRN PRN Reason: NAUSEA/VOMITING Last Admin: 10/15/18 00:25 Dose: 4 mg Oxycodone/Acetaminophen (Percocet 5/325 Mg) 1 tab PO Q4H PRN PRN Reason: PAIN SCALE 3 TO 5 Last Admin: 10/15/18 13:12 Dose: 1 tab Oxycodone/Acetaminophen (Percocet 5/325 Mg) 2 tab PO Q4H PRN PRN Reason: PAIN SCALE 6 TO 10 Last Admin: 10/16/18 01:54 Dose: 2 tab Senna/Docusate Sodium (Tamika-Colace) 2 tab PO Q12H PRN PRN Reason: CONSTIPATION Last Admin: 10/15/18 15:01 Dose: 2 tab Simethicone (Mylicon Chew) 80 mg PO QID PRN PRN Reason: FLATULENCE Sodium Chloride (Ns Flush) 2 ml IV.FLUSH BID [facility] Last Admin: 10/16/18 09:02 Dose: Not Given Sodium Chloride (Ns Flush) 2 ml IV.FLUSH PRN PRN PRN Reason: FLUSH AFTER USING IV ACCESS Sodium Chloride (Ns Flush) 2 ml IV.FLUSH BID [facility] Last Admin: 10/16/18 09:02 Dose: Not Given Sodium Chloride (Ns Flush) 2 ml IV.FLUSH PRN PRN PRN Reason: FLUSH AFTER USING IV ACCESS Zolpidem Tartrate (Ambien) 5 mg PO HS PRN PRN Reason: INSOMNIA Assessment and Plan - Diagnosis (1) Status post repeat low transverse section Code(s): Z98.891 - History of uterine scar from previous surgery Status: Acute (2) Anemia Code(s): D64.9 - Anemia, unspecified Status: Acute Plan: pt will take oral iron after she is no longer taking pain medication - Plan POD #2 pt doing well pain well managed with oral pain medication voiding without difficulty, having problems with constipation, taking stool softeners and passing gas bonding with infant routine care Discharge Planning: dc home tomorrow
--- NOTE | 2018-10-16 10:09 | P.DS ---
Date of admission: 10/14/18 10:14 Primary care physician: No Primary Care Physician Attending physician on discharge: Roman Decker Anticipated date of discharge: 10/17/18 Brief History from admission: Patient is 33-year-old black female at [address] Decker for care and presents complaining of contractions. She denies bleeding or leakage of fluid. Patient is qasim every 2-3 minutes and at the time of this dictation the monitor strip is not reactive but we are hydrating the patient and will monitor that closely strip was non-reactive pt was admitted for primary c section DS: Diagnosis - Discharge Diagnosis (1) Status post repeat low transverse section Status: Acute (2) Anemia Status: Acute DS: Summary Hospital Course: 39.4 weeks gestation, admitted for contractions and nonreactive strip, primary c section with bilateral tubal ligation done, routine post op care - Time Spent with Patient Total time spent providing and/or coordinating discharge services: Less than 30 minutes Exam Vital signs: Vital Signs 10/15/18 12:00 10/15/18 20:00 10/16/18 08:00 Temperature 98.2 F 98.2 F 98.1 F Pulse Rate 99 H 89 88 Respiratory Rate 18 18 20 Blood Pressure 113/48 L 122/69 100/62 Narrative: see post note Results Procedures completed during hospitalization: primary c section with bilateral tubal ligation Discharge Plan - Discharge Disposition Patient Disposition: 01 Discharge Home - Discharge Condition Condition: Good - Discharge Order Discharge Orders: Discharge Order (Routine); Ordered 10/17/18 Ordered By: Ting Funk BOX TURNER Clear for Discharge (Routine); Ordered 10/17/18 Ordered By: Ting Funk - Discharge Details Anticipated Discharge Date: 10/17/18 Discharge Comment: paper rx given for percocet from office - Physicians Team Primary Care Provider: Primary Care Kalee,No Attending Provider: Roman Decker
[2018-10-16] MEDS: Senna/Docusate Sodium 8.6/50 MG Tablet PO PRN (11:32)
[2018-10-17] MEDS: Dextrose 5%/Lactated Ringer's 1,000 ML IV.CONT SCH (02:00)
[2018-10-17] MEDS: Senna/Docusate Sodium 8.6/50 MG Tablet PO PRN (03:12)
[2018-10-17 08:13] VITALS: BP 145/81; PULSE 75; RESP 20; TEMP 98.8
--- NOTE | 2018-10-17 09:44 | P.PNOB ---
Subjective Post op day: 3 Objective Vital Signs/I&O: Vital Signs 10/16/18 20:00 10/17/18 08:00 Temperature 98.7 F 98.8 F Pulse Rate 93 H 75 Respiratory Rate 18 20 Blood Pressure 142/80 H 145/81 H Result Diagrams: 10/15/18 04:49 Objective Remarks: GENERAL: Well-nourished, well-developed patient. CARDIOVASCULAR: Regular rate and rhythm without murmurs, gallops, or rubs. RESPIRATORY: Breath sounds equal bilaterally. No accessory muscle use. ABDOMEN/GI: Abdomen soft, non-tender, bowel sounds present. Incision: steri strips,Clean, dry and intact. Fundus: Firm, non-tender at umbilicus. GENITOURINARY: Light to moderate bleeding. EXTREMITIES: No cyanosis or edema, non-tender, without signs of DVT. Medications and IVs: Active Medications Citric Acid/Sodium Citrate (Sodium Citrate/Citric Acid Liq) 30 ml PO SUPERVISOR [employer] [facility] Stop: 10/18/18 10:14 Last Admin: 10/14/18 11:42 Dose: 30 ml Dextrose/Lactated Ringer's (D5w/Lr Inj) 1,000 mls @ 125 mls/hr IV.CONT .Q8H [facility] Last Admin: 10/17/18 02:00 Dose: Not Given Lactated Ringer's (Lr 1000 Ml Inj) 1,000 mls @ 3,000 mls/hr IV.SIG UNSCH PRN PRN Reason: compromise or epidural Lactated Ringer's (Lr 1000 Ml Inj) 1,000 mls @ 125 mls/hr IV.CONT .Q8H [facility] Last Admin: 10/17/18 02:15 Dose: Not Given Sodium Chloride (Ns Inj) 500 mls @ 1,000 mls/hr IV.SIG UNSCH PRN PRN Reason: SEE LABEL COMMENTS Sodium Chloride (Ns Inj) 1,000 mls @ 100 mls/hr IV.CONT .Q10H PRN PRN Reason: SEE LABEL COMMENTS Oxytocin (Pitocin 30 Units/Ns 500 Ml Premix) 30 units in 500 mls @ 1 mls/hr IV.CONT TITRATE PRN; Protocol PRN Reason: For induction of labor Cefazolin Sodium/Dextrose (Ancef 2 Gm Premix Inj) 2 gm in 50 mls @ 100 mls/hr IV.SIG SUPERVISOR [employer] [facility] Stop: 10/18/18 13:29 Lactated Ringer's (Lr 1000 Ml Inj) 1,000 mls @ 150 mls/hr IV.CONT .Q6H40M [facility] Last Admin: 10/17/18 00:30 Dose: Not Given Oxytocin (Pitocin 30 Units/Ns 500 Ml Premix) 30 units in 500 mls @ 100 mls/hr IV.SIG UNSCH PRN PRN Reason: Heavy bleeding Oxytocin (Pitocin 30 Units/Ns 500 Ml Premix) 30 units in 500 mls @ 100 mls/hr IV.SIG UNSCH PRN PRN Reason: Heavy bleeding Ibuprofen (Motrin) 800 mg PO Q8H PRN PRN Reason: cramping Last Admin: 10/17/18 09:20 Dose: 800 mg Ketorolac Tromethamine (Toradol Inj) 30 mg IV.PUSH Q6H PRN PRN Reason: SEE LABEL COMMENTS Lidocaine HCl (Xylocaine 1% Inj) 0.1 ml I-DERMAL PRN PRN PRN Reason: For IV start Stop: 10/17/18 10:12 Mineral Oil (Muri-Lube Oil) 10 ml TOPICAL PRN PRN PRN Reason: PRN perineal massage Naloxone HCl (Narcan Inj) 0.1 mg IV.PUSH Q2M PRN PRN Reason: for opiate reversal Ondansetron HCl (Zofran Inj) 4 mg IV.PUSH Q6H PRN PRN Reason: NAUSEA/VOMITING Last Admin: 10/15/18 00:25 Dose: 4 mg Oxycodone/Acetaminophen (Percocet 5/325 Mg) 1 tab PO Q4H PRN PRN Reason: PAIN SCALE 3 TO 5 Last Admin: 10/16/18 19:29 Dose: 1 tab Oxycodone/Acetaminophen (Percocet 5/325 Mg) 2 tab PO Q4H PRN PRN Reason: PAIN SCALE 6 TO 10 Last Admin: 10/17/18 09:20 Dose: 2 tab Senna/Docusate Sodium (Tamika-Colace) 2 tab PO Q12H PRN PRN Reason: CONSTIPATION Last Admin: 10/17/18 03:12 Dose: 2 tab Simethicone (Mylicon Chew) 80 mg PO QID PRN PRN Reason: FLATULENCE Last Admin: 10/16/18 19:32 Dose: 80 mg Sodium Chloride (Ns Flush) 2 ml IV.FLUSH BID [facility] Last Admin: 10/16/18 23:36 Dose: Not Given Sodium Chloride (Ns Flush) 2 ml IV.FLUSH PRN PRN PRN Reason: FLUSH AFTER USING IV ACCESS Sodium Chloride (Ns Flush) 2 ml IV.FLUSH BID [facility] Last Admin: 10/16/18 23:37 Dose: Not Given Sodium Chloride (Ns Flush) 2 ml IV.FLUSH PRN PRN PRN Reason: FLUSH AFTER USING IV ACCESS Zolpidem Tartrate (Ambien) 5 mg PO HS PRN PRN Reason: INSOMNIA Assessment and Plan - Diagnosis (1) Status post repeat low transverse section Code(s): Z98.891 - History of uterine scar from previous surgery Status: Acute (2) Anemia Code(s): D64.9 - Anemia, unspecified Status: Acute Plan: pt will take oral iron after she is no longer taking pain medication - Plan POD #3 pt doing well pain well managed with oral pain medication but this am on exam she is tender but due to her medication bowels are moving and passing gas, will continue taking stool softeners bonding with routine care Discharge Planning: dc home today
== END 2018-10-17 11:55 | disposition home or self-care (01) ==
LOC: HOBED 08:43 → H2E 10:13 → H1EA 14:45
PROVIDERS: ADMIT Obstetrics & Gynecology; ATTEND Obstetrics & Gynecology